=== PATIENT | female | born 1945 | race Caucasian/White ===

== ENCOUNTER → 2016-09-10 | Outpatient (CLI) | payer MEDICARE ==
[~2016-09-10] MED LIST: ASPIRIN81 M1; COLACE100 MG PO; CYMBALTA20 MG PO; ENDOCET 5-3251 EACH; REMERON15 M2 PO; SENNA8.6 MG PO; ZOLOFT100 MG
== END | disposition home or self-care (01) ==
LOC: CDC 12:12
DX: R94.31 Abnormal electrocardiogram [ECG] [EKG] (principal)
CPT/HCPCS: 93000

== ENCOUNTER 2016-09-22 06:40 | Inpatient (IN) | payer OTHER ==
[2016-09-22] VITALS (8 sets, daily range): BP systolic 83–138; BP diastolic 47–71
[~2016-09-22] VITALS: Ht 157.5 cm; Wt 52.6 kg
[~2016-09-22 06:40] MED LIST changes: +CENTRUM SILVER1 EAC3 PO; +CILOSTAZOL100 MG PO; +LO-DOSE ASPIRIN81 M2 PO; +ZOLOFT100 MG PO
[2016-09-22 11:11] LABS: HEMATOCRIT 24.8 % (36.0-46.0); MCH 20.1 PG (29.0-34.0); MCV 69.1 FL (83-99); PLATELET COUNT 407 K/uL (156-360); RBC DIS.WIDTH-CV 18.6 % (11.8-14.6); RBC DIS.WIDTH-SD 45.8 % (39-53); RED BLOOD COUNT 3.59 M/uL (3.80-5.20); WHITE BLOOD COUNT 8.3 K/uL (4.1-10.2)
[2016-09-22 11:26] LABS: ANION GAP 6 MEQ/L (2-14); CHLORIDE 109 MEQ/L (99-109); GFR ESTIMATE (CALCULATED) > 59 mL/min/; GLUCOSE 118 mg/dL (70-99); SAMPLE HEMOLYSIS CHECK 0; SAMPLE ICTERIC CHECK 0; SAMPLE LIPEMIA CHECK 0; SODIUM 141 MEQ/L (136-147); UREA NITROGEN (BUN) 8 mg/dL (9-23)
[2016-09-22 11:38] LABS: TROP-I INTERPRETATION NEGATIVE; TROPONIN-I < 0.01 ng/mL (0.0-0.30)
[2016-09-22 14:21] LABS: METH RESISTANT S AUREUS PCR NEGATIVE (NEGATIVE)
[2016-09-22 14:24] LABS: PROBE CHECK PASS; SPECIMEN PROCESSING CONTROL PASS
[2016-09-22] MEDS ORDERED: HYDROCODON-ACE1 EAC7 PO (15:30)
[2016-09-23] VITALS (9 sets, daily range): BP systolic 104–114; BP diastolic 40–62
[2016-09-23 04:33] LABS: MCH 19.6 PG (29.0-34.0); MCHC 28.7 G/DL (30.0-36.0); MCV 68.2 FL (83-99); MEAN PLAT.VOLUME 8.9 uM^3 (9.5-12.4); PLATELET COUNT 334 K/uL (156-360); RBC DIS.WIDTH-CV 18.6 % (11.8-14.6); RBC DIS.WIDTH-SD 45.7 % (39-53); RED BLOOD COUNT 3.37 M/uL (3.80-5.20); WHITE BLOOD COUNT 8.8 K/uL (4.1-10.2)
[2016-09-23 04:35] LABS: CHLORIDE 106 mEq/L (99-109); POTASSIUM 4.2 mEq/L (3.7-5.4); SODIUM 138 mEq/L (136-147)
[2016-09-23 04:36] LABS: GLUCOSE 96 mg/dL (70-99)
[2016-09-23 04:38] LABS: ANION GAP 6 MEQ/L (2-14)
[2016-09-23 04:40] LABS: GFR ESTIMATE (CALCULATED) 52 mL/min/
[2016-09-23 04:41] LABS: UREA NITROGEN (BUN) 9 mg/dL (9-23)
[2016-09-23 04:45] LABS: TROP-I INTERPRETATION NEGATIVE; TROPONIN-I < 0.01 ng/mL (0.0-0.30)
== END 2016-09-23 13:10 | disposition home or self-care (01) | DRG 254 ==
LOC: 2SOUTH 06:40 → 4WEST 12:25 → 2SOUTH 14:03 → 4WEST 09-23 13:10
PROVIDERS: Surgery
DX: I70.201 Unspecified atherosclerosis of native arteries of extremities, right leg (principal); I73.9 Peripheral vascular disease, unspecified; D64.9 Anemia, unspecified; J44.9 Chronic obstructive pulmonary disease, unspecified; F17.200 Nicotine dependence, unspecified, uncomplicated; E11.9 Type 2 diabetes mellitus without complications; Z88.2 Allergy status to sulfonamides; M79.671 Pain in right foot
CPT/HCPCS: 80048; 84484; 85027; 86900; 86901; 86920; 87641; 93005; 94640; 94799; J0690; J1644; J1650; J2250; J2710; J2720; J3010; J7120; P9016

== ENCOUNTER 2016-11-28 12:53 | Day surgery (SDC) | payer OTHER, MEDICARE ==
[~2016-11-28] VITALS: Ht 157.5 cm; Wt 56.0 kg
[~2016-11-28 12:53] MED LIST changes: +HYDROCODON-ACE1 EAC7 PO
[2016-11-28 13:31] LABS: MCH 19.1 PG (29.0-34.0); MCHC 28.1 G/DL (30.0-36.0); MEAN PLAT.VOLUME 9.2 uM^3 (9.5-12.4); PLATELET COUNT 469 K/uL (156-360); RBC DIS.WIDTH-CV 18.3 % (11.8-14.6); RBC DIS.WIDTH-SD 43.8 % (39-53); RED BLOOD COUNT 3.97 M/uL (3.80-5.20)
[2016-11-28 13:33] LABS: CHLORIDE 104 mEq/L (99-109); POTASSIUM 3.8 mEq/L (3.7-5.4)
[2016-11-28 13:34] LABS: SODIUM 140 mEq/L (136-147)
[2016-11-28 13:35] LABS: GLUCOSE 98 mg/dL (70-99)
[2016-11-28 13:37] LABS: ANION GAP 13 MEQ/L (2-14)
[2016-11-28 13:39] LABS: GFR ESTIMATE (CALCULATED) > 59 mL/min/
[2016-11-28 13:40] LABS: UREA NITROGEN (BUN) 10 mg/dL (9-23)
[2016-11-28 13:45] VITALS: BP 146/70
[2016-11-28 19:40] VITALS: BP 121/58
[2016-11-28 19:44] VITALS: BP 121/58
[2016-11-29 00:20] VITALS: BP 110/60
[2016-11-29 04:24] VITALS: BP 121/74
[2016-11-29 07:00] VITALS: BP 110/52
[2016-11-29 11:48] VITALS: BP 111/51
[2016-11-29 15:20] VITALS: BP 122/58
== END 2016-11-29 15:50 | disposition home or self-care (01) ==
LOC: SDC 12:53 → 2SOUTH 17:45 → ENRESERV 17:46 → 4EAST 19:32
PROVIDERS: Surgery
PROC: 04CK0ZZ Extirpation of Matter from Right Femoral Artery, Open Approach (ICD-10-PCS; principal; 2016-11-28)
PROC: 047K3ZZ Dilation of Right Femoral Artery, Percutaneous Approach (ICD-10-PCS; principal; 2016-11-28)
DX: T82.868A Thrombosis due to vascular prosthetic devices, implants and grafts, initial encounter (principal); I70.321 Atherosclerosis of unspecified type of bypass graft(s) of the extremities with rest pain, right leg; F17.200 Nicotine dependence, unspecified, uncomplicated; E11.9 Type 2 diabetes mellitus without complications; J44.9 Chronic obstructive pulmonary disease, unspecified; Z85.048 Personal history of other malignant neoplasm of rectum, rectosigmoid junction, and anus; Z79.01 Long term (current) use of anticoagulants; Z88.2 Allergy status to sulfonamides; Z91.09 Other allergy status, other than to drugs and biological substances; Y83.2 Surgical operation with anastomosis, bypass or graft as the cause of abnormal reaction of the patient, or of later complication, without mention of misadventure at the time of the procedure
CPT/HCPCS: 71020; 80048; 85027; 86850; 86900; 86901; 93005; C1725; C1757; C1769; C1894; G0378; J0690; J1200; J1644; J3010; J7120

== ENCOUNTER → 2017-04-17 | Outpatient (CLI) | payer MEDICARE ==
[~2017-04-17] MED LIST changes: +PERCOCET 5/31 TABLET PO
== END | disposition home or self-care (01) ==
LOC: CDC 14:47
DX: Z01.810 Encounter for preprocedural cardiovascular examination (principal); R00.1 Bradycardia, unspecified
CPT/HCPCS: 93000

== ENCOUNTER 2017-04-22 07:39 | Day surgery (SDC) | payer OTHER ==
[~2017-04-22] VITALS: Ht 157.5 cm; Wt 50.9 kg
[~2017-04-22 07:39] MED LIST changes: +LORTAB 5-325 M1 EACH PO
[2017-04-22 08:07] VITALS: BP 128/72
[2017-04-22 08:31] LABS: HEMOGLOBIN 11.9 G/DL (11.9-15.5); MCHC 31.3 G/DL (30.0-36.0); MCV 79.8 FL (83-99); PLATELET COUNT 257 K/uL (156-360); RBC DIS.WIDTH-CV 22.4 % (11.8-14.6); RBC DIS.WIDTH-SD 63.6 % (39-53); RED BLOOD COUNT 4.76 M/uL (3.80-5.20); WHITE BLOOD COUNT 8.5 K/uL (4.1-10.2)
[2017-04-22 09:24] LABS: CHLORIDE 107 mEq/L (99-109); POTASSIUM 4.1 mEq/L (3.7-5.4); SODIUM 139 mEq/L (136-147)
[2017-04-22 09:25] LABS: GLUCOSE 103 mg/dL (70-99)
[2017-04-22 09:29] LABS: CREATININE 0.9 mg/dL (0.6-1.3); GFR ESTIMATE (CALCULATED) > 59 mL/min/
[2017-04-22 09:30] LABS: UREA NITROGEN (BUN) 8 mg/dL (9-23)
[2017-04-22 12:24] VITALS: BP 113/58
[2017-04-22 15:36] VITALS: BP 115/59
== END 2017-04-22 17:10 | disposition home or self-care (01) ==
LOC: SDC 07:39 → 2SOUTH 11:15 → ENRESERV 11:17 → 2EASTP 12:47 → SDC 15:57 → 2EASTP 17:10
PROVIDERS: Surgery
PROC: 04CK0ZZ Extirpation of Matter from Right Femoral Artery, Open Approach (ICD-10-PCS; principal; 2017-04-22)
DX: T82.868A Thrombosis due to vascular prosthetic devices, implants and grafts, initial encounter (principal); I70.221 Atherosclerosis of native arteries of extremities with rest pain, right leg; J44.9 Chronic obstructive pulmonary disease, unspecified; R00.1 Bradycardia, unspecified; Z88.2 Allergy status to sulfonamides; Z79.82 Long term (current) use of aspirin; F17.210 Nicotine dependence, cigarettes, uncomplicated
CPT/HCPCS: 80048; 85027; 86850; 86900; 86901; 94640; 99202; C1757; C1768; C2628; G0378; J0690; J1644; J2250; J3010; J7120